=== PATIENT | male | born 1945 | race Caucasian/White ===

== ENCOUNTER 2020-12-12 08:35 | Inpatient (IN) | payer MEDICARE ==
[~2020-12-12 08:35] MED LIST: 00186-0370-20 IH; ACTOS 45MG45 MG/TAB PO; ALLEGRA 180MG180 MG PO; ALLEGRA ALLERG180 MG PO; GLUCOTROL10 MG PO; JANUVIA 100MG100 MG PO; LEVAQUIN 5500 MG/TA1 PO; LIPITOR 10MG10 MG PO; LOTREL 10 MG-401 CAP PO; NASONEX SPRAY17 GM NS; RT SPIRIVA18 MCG IH; SINGULAIR 110 MG/TAB PO
[2020-12-12] MEDS ORDERED: TYLENOL PM EXTR1 TA1 PO (08:56)
[2020-12-12] MEDS ORDERED: CANA300T PO (08:57)
[2020-12-12] MEDS ORDERED: BYSTOLIC5 MG PO (09:01)
[2020-12-12] MEDS ORDERED: GLUCOTROL XL10 MG PO (09:01)
[2020-12-12] MEDS ORDERED: XARELTO20 MG PO (09:03)
[2020-12-12] MEDS ORDERED: SINGULAIR 110 MG/TAB PO (09:04)
[2020-12-12] MEDS ORDERED: MAXITROL OPHTH3.5 GM OP ×2 (09:06)
[2020-12-12] MEDS ORDERED: ILOTYCIN5 MG/GM OP (09:07)
[2020-12-12] MEDS ORDERED: TRIAMCINOLONE A15 GM TP (09:08)
[2020-12-12] MEDS ORDERED: SYSTANE GEL EYE10 ML OP (09:08)
[2020-12-12 10:17] VITALS: BP 110/65; PULSE 73; TEMP 98.5
[2020-12-12 10:19] LABS: BASO % 0.4 % (0.0-2.0); EOS # 0.2 (0.0-0.7); EOS % 2.2 % (0-4.0); GRAN # 4.4 (1.4-6.5); GRAN % 65.1 % (42.2-75.2); HEMATOCRIT 46.9 % (42.0-52.0); HEMOGLOBIN 15.4 g/dl (13.5-18.0); LYMPH # 1.6 (1.2-3.4); LYMPH % 24.2 % (20.0-51.0); MEAN CELL VOLUME 98 fl (80.0-100.0); MEAN CORPUSCULAR HEMOGLOBIN 32 pg (27.0-31.0); MEAN CORPUSCULAR HGB CONC 33 g/dl (33.0-37.0); MEAN PLATELET VOLUME 10.8 fl (7.4-10.4); MONO # 0.5 (0.1-0.6); MONO % 7.5 % (1.7-9.3); PLATELET COUNT 200 K/mm3 (130-400); RED BLOOD COUNT 4.81 M/mm3 (4.20-5.60); REDCELL DISTRIBUTION WIDTH-CV 13.8 % (11.5-14.5)
[2020-12-12 10:21] LABS: INR 1.2 (0.8-3.0); PROTHROMBIN TIME 13.4 SECONDS (9.7-12.8)
[2020-12-12 10:37] LABS: BILIRUBIN,TOTAL 0.1 mg/dL (0.0-1.0); CREATININE, serum 0.85 (0.66-1.25); MAGNESIUM 2.1 mg/dL (1.6-2.3); POTASSIUM 4.1 mmol/L (3.4-5.0); TOTAL PROTEIN 6.9 gm/dL (6.4-8.2)
--- NOTE | 2020-12-12 11:31 | NUR ---
[facility] medication bottle sent to pharmacy
[2020-12-12 11:53] VITALS: BP 120/72; PULSE 60; TEMP 97.3
[2020-12-12 16:09] VITALS: BP 125/83; PULSE 62; TEMP 97.5
--- NOTE | 2020-12-12 18:22 | NUR ---
Pt educated on POC and new medications. Pt denies any chest pain or palpitations. Has no new needs. Call light within reach.
[2020-12-12 19:43] VITALS: BP 115/88; PULSE 56; TEMP 97.4
--- NOTE | 2020-12-12 20:00 | NUR ---
Assessment complete. Patient's Qtc this morning was 493 and his second dose of sotalol was administered; EKG to be performed at 2200. Patient is alert and oriented and ambulates independently in room. He has no complaints of pain. Lungs are clear and HR is irregular with a normal rate; He is in aflutter. No new concerns.
[2020-12-13] VITALS (7 sets, daily range): BP systolic 98–135; BP diastolic 52–73; PULSE 65–94; TEMP 97.4–98.5
[2020-12-13 07:12] LABS: BASO % 0.5 % (0.0-2.0); EOS # 0.1 (0.0-0.7); EOS % 1.9 % (0-4.0); GRAN # 4.1 (1.4-6.5); GRAN % 63.6 % (42.2-75.2); HEMOGLOBIN 14.8 g/dl (13.5-18.0); LYMPH # 1.6 (1.2-3.4); LYMPH % 25.5 % (20.0-51.0); MEAN CELL VOLUME 98 fl (80.0-100.0); MEAN CORPUSCULAR HEMOGLOBIN 32 pg (27.0-31.0); MEAN CORPUSCULAR HGB CONC 33 g/dl (33.0-37.0); MEAN PLATELET VOLUME 10.8 fl (7.4-10.4); MONO # 0.5 (0.1-0.6); MONO % 8.3 % (1.7-9.3); PLATELET COUNT 185 K/mm3 (130-400); RED BLOOD COUNT 4.61 M/mm3 (4.20-5.60); REDCELL DISTRIBUTION WIDTH-CV 13.6 % (11.5-14.5)
[2020-12-13 07:19] LABS: CALCIUM 8.7 mg/dL (8.4-10.2); CREATININE, serum 0.85 (0.66-1.25); POTASSIUM 3.9 mmol/L (3.4-5.0)
--- NOTE | 2020-12-13 07:45 | NUR ---
Patient sitting on the side of the bed eating breakfast at this time. Patient does not C/O any pain or discomfort at this time. Denies any further needs. Patient will be transferring to room 317 due to a broken call light. Will continue to monitor.
--- NOTE | 2020-12-13 12:38 | NUR ---
All scheduled meds given. Sotolol dosage adjusted to 120 mg. Patient still in aflutter. Patient does not C/O any chest pain or SOB at this time. Cardioversion scheduled for tomorrow. Patient denies any further needs at this time. Call light within reach. Will continue to monitor.
--- NOTE | 2020-12-13 16:17 | NUR ---
Electrical Products Sales Engineer met with the patient to complete intake. The patient lives independently with his , Allison in [place]. The patient denies DME use. The patient's PCP is Dr. Jamie Wiley and patient receives medications from [facility] on [facility] in [place]. The patient does not have advanced directives in the EMR but states that they are complete and designate his Allison. The patient plans to return home at discharge with Allison providing transportation. There are no additional needs at this time. *Discharge disposition* Home with Allison
--- NOTE | 2020-12-13 16:33 | NUR ---
Education given regarding tomorrow's cardioversion. Handout given and all questions answered. Consent signed and placed on the chart. Patient denies any pain, discomfort, or needs at this time. Will continue to monitor. Independant in room. Call light within reach.
--- NOTE | 2020-12-13 18:43 | NUR ---
Report given to SUNIL España. Patient denies any pain, discomfort, or needs at this time. Call light within reach.
--- NOTE | 2020-12-13 20:00 | NUR ---
Assessment complete. Patient is alert and oriented, currently resting in bed. Heart sounds normal with irregular rhythm. Patient breathing on RA. Bilateral lower extremity edema, including feet with 1+ pitting. Patient has no complaints of pain. He is aware and educated on CV in AM and NPO status at midnight. Call light in reach.
--- NOTE | 2020-12-13 20:52 | NUR ---
Patient's BP 109/64. Dr. Powers contacted to verify BP meds; He orders to d/c lisinopril and only give 80 mg sotalol tonight and recontinue the 120 mg in the AM. Will continue to monitor.
[2020-12-14] VITALS (10 sets, daily range): BP systolic 106–125; BP diastolic 45–92; PULSE 65–83; TEMP 97.3–98.6
--- NOTE | 2020-12-14 06:42 | NUR ---
Pt. awake an using the restroom at this time. Does not C/O any pain, discomfort, or needs at this time. Pt. NPO at midnight for his procedure at 0900. Will continue to monitor. Call light within reach.
[2020-12-14 07:33] LABS: CREATININE, serum 0.89 (0.66-1.25); MAGNESIUM 2.2 mg/dL (1.6-2.3); POTASSIUM 4.2 mmol/L (3.4-5.0)
[2020-12-14 07:34] LABS: BASO % 0.4 % (0.0-2.0); EOS # 0.1 (0.0-0.7); EOS % 1.9 % (0-4.0); GRAN # 4.9 (1.4-6.5); GRAN % 66.4 % (42.2-75.2); HEMATOCRIT 47.7 % (42.0-52.0); HEMOGLOBIN 15.7 g/dl (13.5-18.0); LYMPH # 1.7 (1.2-3.4); LYMPH % 23.2 % (20.0-51.0); MEAN CELL VOLUME 97 fl (80.0-100.0); MEAN CORPUSCULAR HEMOGLOBIN 32 pg (27.0-31.0); MEAN CORPUSCULAR HGB CONC 33 g/dl (33.0-37.0); MEAN PLATELET VOLUME 11.1 fl (7.4-10.4); MONO # 0.6 (0.1-0.6); MONO % 7.7 % (1.7-9.3); PLATELET COUNT 211 K/mm3 (130-400); RED BLOOD COUNT 4.93 M/mm3 (4.20-5.60); REDCELL DISTRIBUTION WIDTH-CV 13.5 % (11.5-14.5)
--- NOTE | 2020-12-14 09:01 | NUR ---
Patient taken down for cardioversion via bed.
--- NOTE | 2020-12-14 09:37 | NUR ---
Initial visit with patient's ; Patient in 'Procedure,' Console Operator offered God's blessings to him and his family and will keep Ethan in her prayers.
--- NOTE | 2020-12-14 10:37 | NUR ---
Patient back from cardioversion. Pt. does not C/O any pain at this time, but does have some nausea. Dr. Mas contacted regarding zofran for patient's nausea. Order for zofran entered, medication administered. Pt. on post op vitals. Will continue to monitor. Call light within reach.
--- NOTE | 2020-12-14 11:44 | NUR ---
Pt. still C/O nausea. Compazine given. Will continue to monitor.
[2020-12-14] MEDS ORDERED: BETAPACE 120MG120 MG PO (12:06)
--- NOTE | 2020-12-14 14:11 | NUR ---
Pt. meets criteria for discharge. Patient's vitals are stable. IV DC'd with no signs of phlebitis. Discharge education/instructions given to patient. Understanding of the teaching was verbalized and Pt. denies any further questions or concerns. Nausea has been alleviated. No concerns for pain or discomfort at this time. Patient escorted from the building by [employer] Staff.
== END 2020-12-14 14:00 | disposition home or self-care (01) | DRG 310 ==
LOC: MEDICAL 08:35
PROVIDERS: ADMIT Internal Medicine Cardiovascular Disease
PROC: 5A2204Z Restoration of Cardiac Rhythm, Single (ICD-10-PCS; principal; 2020-12-12)
DX: I48.0 Paroxysmal atrial fibrillation (principal); I48.92 Unspecified atrial flutter; I08.1 Rheumatic disorders of both mitral and tricuspid valves; E11.42 Type 2 diabetes mellitus with diabetic polyneuropathy; I10 Essential (primary) hypertension; G47.33 Obstructive sleep apnea (adult) (pediatric); J30.2 Other seasonal allergic rhinitis; M06.9 Rheumatoid arthritis, unspecified; E78.5 Hyperlipidemia, unspecified; Z82.49 Family history of ischemic heart disease and other diseases of the circulatory system
CPT/HCPCS: J0780; J2405

== ENCOUNTER 2021-01-27 07:30 | Day surgery (SDC) | payer MEDICARE ==
[~2021-01-27] VITALS: Ht 175.4 cm; Wt 115.0 kg
[2021-01-27] VITALS (10 sets, daily range): BP systolic 105–147; BP diastolic 59–80; PULSE 56–65; TEMP 97.8
[~2021-01-27 07:30] MED LIST changes: +BETAPACE 120MG120 MG PO; +BYSTOLIC5 MG PO; +CANA300T PO; +GLUCOTROL XL10 MG PO; +ILOTYCIN5 MG/GM OP; +MAXITROL OPHTH3.5 GM OP; +SYSTANE GEL EYE10 ML OP; +TRIAMCINOLONE A15 GM TP; +TYLENOL PM EXTR1 TA1 PO; +XARELTO20 MG PO
[2021-01-27 08:37] LABS: HEMOGLOBIN 16.3 g/dl (13.5-18.0); MEAN CELL VOLUME 93 fl (80.0-100.0); MEAN CORPUSCULAR HEMOGLOBIN 32 pg (27.0-31.0); MEAN CORPUSCULAR HGB CONC 34 g/dl (33.0-37.0); MEAN PLATELET VOLUME 10.8 fl (7.4-10.4); PLATELET COUNT 211 K/mm3 (130-400); RED BLOOD COUNT 5.16 M/mm3 (4.20-5.60); REDCELL DISTRIBUTION WIDTH-CV 13.5 % (11.5-14.5)
[2021-01-27 08:50] LABS: CREATININE, serum 0.78 (0.66-1.25); INR 1.1 (0.8-3.0); POTASSIUM 4.2 mmol/L (3.4-5.0); PROTHROMBIN TIME 11.7 SECONDS (9.7-12.8)
[2021-01-27] MEDS ORDERED: ASPIRIN E.C. 8181 MG PO (09:23)
[2021-01-27 09:41] LABS: PARTIAL THROMBOPLASTIN TIME 33.9 SECONDS (26.0-37.0)
--- NOTE | 2021-01-27 10:06 | NUR ---
SEE MERGE FOR ALL MEDICATION ADMINISTRATION TIMES, INTRA AND POST SEDATION ASSESSMENTS
--- NOTE | 2021-01-27 11:15 | NUR ---
pt to [facility] 12 via bed from flower shop laborer/designer, in room, has radial band on right wrist. call light in reach, head of bed elevated, pt states is "nauseated" Dr Powers's nurse contacted by Lacey BARBER. new order recieved
--- NOTE | 2021-01-27 11:30 | NUR ---
complazine 5mg IV given as ordered, con't rests in bed
--- NOTE | 2021-01-27 12:30 | NUR ---
pt dozes in bed, lunch ordered earlier, declines anything at this time. states has no further nausea
--- NOTE | 2021-01-27 13:15 | NUR ---
pt con't same, started releasing band 2cc every 5-10 min, no bleeding noted
--- NOTE | 2021-01-27 13:45 | NUR ---
band released with no bleeding or swelling, bandaid and coban for support placed. pt sits on edge of bed and eats lunch
[2021-01-27] MEDS ORDERED: LIPITOR 40MG TA40 MG PO (13:52)
--- NOTE | 2021-01-27 14:00 | NUR ---
pt walked to b/r to void, gait steady, tolerated well, reviewed discharge inst. with pt and on medication changes, rx to pick up driver and stopping blood thinner. pt has to followup appts made, first one in [place], reviewed precautions and activity with pt with verbal understanding. 1v dc'd intact, pt up and dressed and discharged at 1445
== END 2021-01-27 14:45 | disposition home or self-care (01) ==
LOC: COL.CAR 07:30
PROVIDERS: Internal Medicine Cardiovascular Disease
DX: I25.10 Atherosclerotic heart disease of native coronary artery without angina pectoris (principal); I48.0 Paroxysmal atrial fibrillation; I10 Essential (primary) hypertension; G47.33 Obstructive sleep apnea (adult) (pediatric); E78.00 Pure hypercholesterolemia, unspecified; E11.9 Type 2 diabetes mellitus without complications; E78.5 Hyperlipidemia, unspecified; I34.0 Nonrheumatic mitral (valve) insufficiency; Z79.84 Long term (current) use of oral hypoglycemic drugs; Z79.899 Other long term (current) drug therapy
CPT/HCPCS: C1769; C1894; J0780; J1644; J2250; J3010

== ENCOUNTER 2024-05-08 10:14 | Day surgery (SDC) | payer MEDICARE ==
[~2024-05-08] VITALS: Ht 176.5 cm; Wt 101.7 kg
[~2024-05-08 10:14] MED LIST changes: +ASPIRIN E.C. 8181 MG PO; +LIPITOR 40MG TA40 MG PO; +LR 1,000 ML IV SCH; +Ondansetron 4 MG/2 ML VIAL IV PRN
[2024-05-08 11:19] VITALS: BP 121/81; PULSE 57; TEMP 98.5
[2024-05-08] MEDS ORDERED: CORDARONE200 MG/TAB PO (11:26)
[2024-05-08] MEDS ORDERED: LASIX 40MG TABL40 MG PO (11:27)
[2024-05-08] MEDS ORDERED: COLACE 100100 MG/CAP PO (11:28)
[2024-05-08] MEDS ORDERED: LOPRESSOR 225 MG/TAB PO (11:29)
[2024-05-08] MEDS ORDERED: CLARITIN 1010 MG/TAB PO (11:29)
[2024-05-08] MEDS ORDERED: MELATONIN5 M1 SL (11:30)
[2024-05-08] MEDS ORDERED: K-DUR 10 MEQ T10 MEQ PO (11:30)
[2024-05-08] MEDS ORDERED: RYBELSUS14 MG PO (11:32)
[2024-05-08] MEDS ORDERED: GLUCOTROL XL2.5 MG PO (11:33)
[2024-05-08] MEDS ORDERED: XARELTO20 MG PO (11:34)
--- NOTE | 2024-05-08 11:50 | NUR ---
The patient ambulated back to [facility] independently using a steady gait and appeared to tolerate the activity well. Vital signs obtained. Consent signed. 20G IV started in right hand with one stick, LR infusing without difficulty. Assessment completed. Home medications reconcilled. , Chel, brought back to be at his bedside. Denies wanting an warm blanket at this time. Denies any further needs at this time.
[2024-05-08] MEDS ORDERED: Lidocaine PF 2% (20 MG/ML) 5 ML VIAL ONE (11:58)
[2024-05-08 12:35] VITALS: BP 121/66; PULSE 64; TEMP 97.7
[2024-05-08 12:45] VITALS: BP 120/67; PULSE 65
[2024-05-08 13:00] VITALS: BP 112/64; PULSE 62
--- NOTE | 2024-05-08 13:30 | NUR ---
Pt returned via cart to [facility] at 1235. Ambulated to recliner in bay with staff at pts sides. A&O. VSS-see flowsheet. Pt tolerated oral intake. Dr Browne in to visit with pt and post procedure. IV removed, pressure dressing applied. Discharge teaching completed, pt and verbalized understanding. After dressing, pt taken via wheelchair to private vehicle for dc home with to drive.
== END 2024-05-08 13:30 | disposition home or self-care (01) ==
LOC: SDCO 10:14
DX: K29.50 Unspecified chronic gastritis without bleeding (principal); K21.00 Gastro-esophageal reflux disease with esophagitis, without bleeding; K44.9 Diaphragmatic hernia without obstruction or gangrene; K31.89 Other diseases of stomach and duodenum; I48.91 Unspecified atrial fibrillation; K59.00 Constipation, unspecified; E11.9 Type 2 diabetes mellitus without complications; I48.92 Unspecified atrial flutter; Z87.891 Personal history of nicotine dependence; Z79.82 Long term (current) use of aspirin; Z79.01 Long term (current) use of anticoagulants; Z95.1 Presence of aortocoronary bypass graft; Z79.84 Long term (current) use of oral hypoglycemic drugs; Z79.899 Other long term (current) drug therapy
CPT/HCPCS: J2704; J7120